=== PATIENT | female | born 1955 | race Caucasian/White ===

== ENCOUNTER 2016-11-20 11:13 | Outpatient (CLI) | payer OTHER ==
--- NOTE | 2016-11-20 12:45 | Ultrasound Report ---
Bilateral digital diagnostic mammography with CAD and targeted right breast ultrasound. History: Focal right mastodynia. Findings: There is intermediate density of the fibroglandular tissue. No masses or architectural distortion. No suspicious microcalcifications. Sonographic evaluation of the area of clinical symptoms in the right breast demonstrates no evidence of a cystic or solid mass. Impression: No suspicious findings. BI-RADS code: 1. Recommendation: Annual screening.
--- NOTE | 2016-11-20 13:35 | Mammography Report ---
BONE DENSITY STUDY: DEFINITIONS: BMD = Bone Mineral Density T-score = BMD related to mean peak bone mass of young adult (mean expressed in Standard Deviation) Z-score = Age matched BMD expressed in SD World Health Organization (WHO) Diagnostic Criteria Normal T-score > -1 SD Osteopenia T-score between -1 and -2.4 SD Osteoporosis T-score -2.5 SD or below FINDINGS: The weighted average BMD of lumbar spine L1-L4 is 0.733 with a T-score of -2.9. The weighted average BMD of hip is 0.817 with a T-score of -1.0. IMPRESSION: The patient's T-score is diagnostic for osteoporosis and high relative risk for fracture. NOTE: BMD is not the only risk factor for fracture; also consider factors such as the patient's age, risk of falling, previous osteoporotic fracture, family history of osteoporotic fractures, current smoker, and low body weight. Arora's triangle is a region of interest in femur, predominantly of trabecular bone. It is not a true anatomic site, and [facility] does not recommend its use clinically.
== END 2016-11-20 11:14 | disposition home or self-care (01) ==
LOC: MAMMO 11:13
PROVIDERS: ATTEND Advanced Practice Midwife
DX: M81.0 Age-related osteoporosis without current pathological fracture (principal); N64.4 Mastodynia; N95.8 Other specified menopausal and perimenopausal disorders; I10 Essential (primary) hypertension; E78.00 Pure hypercholesterolemia, unspecified; E11.9 Type 2 diabetes mellitus without complications
CPT/HCPCS: 76642; 77080; G0204; 77066